=== PATIENT | female | born 1995 | race Caucasian/White ===

== ENCOUNTER 2020-02-07 04:32 | Inpatient (IN) | payer MEDICAID, SELFPAY ==
[2020-02-07] VITALS (18 sets, daily range): BP systolic 0–153; BP diastolic 0–98; PULSE 58–156; RESP 16; TEMP 36.4–36.7; O2SAT 98; BMI 19.8
[2020-02-07] MEDS: lactated ringers 1,000 ML 999 ML IV (04:40)
--- NOTE | 2020-02-07 04:40 | PC.NURSE ---
IV Pt arrived in OB via EMS. Nursing staff attempted to administer IV fluids to IV that was present. IV site started bleeding and unable to run fluids through site. IV discontinued by nursing staff.loida rn.
[2020-02-07 05:55] LABS: Basophils # 0.1 10^3/uL (0.0-0.1); Basophils % 0.3 %; Eosinophils # 0.1 10^3/uL (0.0-0.8); Eosinophils % 0.7 %; Hematocrit 33.9 % (37.0-47.0); Hemoglobin 11.1 g/dL (11.5-15.3); Lymphocytes # 3.8 10^3/uL (0.8-4.8); Lymphocytes % 19.5 %; Mean Corpuscular HGB Conc 32.7 g/dL (30.0-36.0); Mean Corpuscular Hemoglobin 30.9 pg (28.0-34.0); Mean Corpuscular Volume 94.4 fL (81-99); Mean Platelet Volume 11.8 fL (7.4-10.4); Monocytes # 1.2 10^3/uL (0.2-0.9); Monocytes % 6.2 %; Neutrophils # 14.1 10^3/uL (1.8-7.7); Neutrophils % 72.8 %; Nucleated Red Blood Cells % 0 %; Platelet Count 314 10^3/cmm (130-400); Red Blood Count 3.59 10^6/uL (4.1-5.3); Red Cell Distribution Width 15.6 % (12.1-15.1); White Blood Count 19.4 10^3/uL (4.0-10.0)
--- NOTE | 2020-02-07 06:00 | P.HP_ITS ---
Providers/Chief Complaint Admitting Physician: Deann Bustillos MD Primary Care Provider: FAHEEM Blanchard Chief Complaint: labor History of Present Illness Miguel Mccall is a 24 year old female 5 para 4-0-0-4 with a stated last menstrual. Of May 2019. She has had no care. I was contacted by [facility] nursing staff in the OB department regarding a patient in the emergency room at [facility] in [place] who had arrived bryant with rupture of membranes. This call came to me at 3:45 AM. I promptly called [place] emergency room at 3:49 AM and accepted transfer to [facility]. The emergency room physician advised me that she was bryant every 9 to 10 minutes and that his evidence of rupture of membranes was based on patient history. He stated that she was 4 cm dilated and effaced . Upon her arrival to [facility] OB department, patient stated that her water broke approximately an hour prior to her arrival here at [facility] and that to the best of her knowledge her fluid was clear. Her significant other stated that she had mentioned she thought her water broke a few days ago and then even earlier today but it had not until just recently. He stated that she had also been having contractions a few days ago which returned a few hours ago and were more intense. She stated that her. Was sometime in May and that her earliest gestation at delivery was 37 weeks. She is never had Medications/Allergies Allergies Allergy/AdvReac Type Severity Reaction Status Date / Time No Known Allergies Allergy Verified 02/07/20 05:38 Vitals/I&O/Wt Last Vital Signs Pulse 156 H 02/07/20 05:47 BP 153/87 02/07/20 05:47 Data : 02/07/20 04:45 Coding Level of Care Code Acute Pesticide Chemist for Jenise Fields
--- NOTE | 2020-02-07 06:11 | PM.OBGYHP ---
Providers/Chief Complaint Admitting Physician: Deann Bustillos MD Primary Care Provider: FAHEEM Blanchard Chief Complaint: labor HPI INDUSTRIAL RELATIONS SPECIALIST History of Present Illness Miguel Mccall is a 24 year old female 5 para 4-0-0-4 with a last menstrual period in May 2019. She presented to the emergency room at [place] and [place] with contractions starting late last night/earlier this morning and rupture of membranes productive of clear fluid per patient just prior to her arrival. The emergency room physician contacted our OB staff who contacted me at approximately 3:45 AM. I contacted the emergency room physician at [facility] at 3:49 AM and was told that patient was 4 cm dilated and effaced and bryant every 9 to 10 minutes. He stated that they did not evaluate for rupture of membranes but stated that that was per patient's observation. I accepted her transfer, and she arrived at the [facility] OB department after 4:30 AM. Patient stated that she has had no care. Her earliest gestation at delivery was 37 weeks, and all of her pregnancies and deliveries have been uncomplicated with the exception of the most recent delivery last year. She had preeclampsia and delivered at 39 weeks gestation. Present Details : 5 Para: 4 Date of Last Menstrual Period: 05/15/19 Calculated Date of Delivery: 02/19/20 Gestational Age Based on Last Menstrual Period: 38 Dating criteria OB: other (Approximate LMP) care: none Ultrasounds: none Obstetrical complications: none Medical complications OB: none Labs GBS: Unknown Review of Systems Const: Denies: fever(s) : Reports: vaginal discharge (Consistent with amniotic fluid) and pelvic pain (Intermittent and consistent with contractions); Denies: vaginal odor or vaginal bleeding Medications/Allergies Allergies Allergy/AdvReac Type Severity Reaction Status Date / Time No Known Allergies Allergy Verified 02/07/20 05:38 PFSH INDUSTRIAL RELATIONS SPECIALIST PFSH: Social History (Updated 02/07/20 @ 06:19 by Deann Bustillos MD) Smoking and tobacco status: never smoked Caregiver/support person: Yes Lives independently: Yes Household members: significant other Number of children: 4 Number of grandchildren: 0 History History History 5 Term 4 Miscarriages/Ectopic 0 0 Living Children 4 Past Pregnancies Del. Date GA/Weeks Outcome Route Wt Inf Gender Labor Lgth Comp. Anesthesia Location 12/15/12 37 live - full term Vaginal 5 lb 4 oz Female 02/17/15 40 live - full term Vaginal 8 lb 9 oz Male 05/24/16 41 live - full term Vaginal 7 lb 5 oz Female 10/08/18 39 live - full term Vaginal 7 lb 11 oz Female [place] Delivery Date: 12/15/12 No complications Deann Bustillos Delivery Date: 02/17/15 No complications Deann Bustillos Delivery Date: 05/24/16 No complications Deann Bustillos Delivery Date: 10/08/18 Preeclampsia Deann Bustillos Care ALESSANDRO Calculator Estimated Delivery Date Method Current WG Current Estimate 02/19/20 LMP (Uncertain) 38w 2d Expected Delivery Route/Plan Vaginal/precipitous Vitals/I&O/Wt Last Vital Signs Pulse 86 02/07/20 06:01 BP 142/81 02/07/20 06:01 Physical Exam Narrative: EXAM NARRATIVE: heart tones appear category 1 with moderate variability, normal baseline, accelerations and no decelerations. She appears to be bryant every 1 to 2 minutes. Const: GENERAL APPEARANCE: cooperative, well developed and in distress (Breathing through contractions) ORIENTATION/CONSCIOUSNESS: Yes awake, Yes oriented to person, Yes oriented to place and Yes oriented to time : MANUAL OB EXAM: dilated 10 cm, effaced fully and station 0 (Vertex with head well applied) AMNIOTIC FLUID: Meconium-stained amniotic fluid present Data : 02/07/20 04:45 A&P Assessment and plan (1) Spontaneous rupture of membranes: Status: Acute (2) Rupture of membranes with meconium present: Status: Acute (3) Labor, precipitous, antepartum: Prepare for delivery Status: Acute (4) No care in current : DFS consultation Status: Acute Attestations Medical Necessity Statement*: As patient is actively laboring with impending delivery she will require hospitalization. Coding Level of Care Code Acute Harvest Manager for Jenise Fields Diagnoses Spontaneous rupture of membranes Rupture of membranes with meconium present O77.0 Labor, precipitous, antepartum O62.3 No care in current O09.30
--- NOTE | 2020-02-07 06:31 | P.PCNOB_ITS ---
Delivery Note: Date of delivery: February 07, 2020 Pre-Delivery Course: Patient arrived from [facility] emergency room via EMS having left they are actively bryant and with rupture of membranes and 4 cm dilated and effaced . She had no care this . She stated that her last menstrual period was sometime in May 2019. She stated that she was bryant a few days ago and then that the contractions worsened in frequency and intensity earlier this morning and that her water broke just prior to her arrival in the [place] emergency room. When she arrived in the OB department here at [facility] she was completely dilated and effaced and bryant every 1 to 2 minutes. Delivery: After a less than 30-minute active portion of the second stage of labor she delivered a viable male at 5:04 AM. Head was straight OA. There was no nuchal cord. A fore bag was palpable by myself and was ruptured and productive of meconium stained fluid of moderate amount. This was ruptured part way through the active portion of the second stage of her labor. Bulb suctioning was done upon delivery of baby's head and the baby's body. Baby was placed on maternal abdomen while cord was clamped by myself and cut by the father the baby. Cord blood was obtained as maternal blood type was unknown at the time. Baby required only routine resuscitative measures. Gentle traction was placed on the cord, and Pitocin was given intravenously in routine doses. The placenta delivered uneventfully at 5:16 AM and appeared to be intact and meconium stained and will be sent for pathology. Perineum and cervix were inspected and were found to be intact with the exception of bilateral periurethral abrasions. Fundus was firm, deep and well below the umbilicus. Estimated blood loss 100 mL. Post-Delivery Status: Mother and baby were stable. 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
[2020-02-07] MEDS: oxytocin 30 UNIT/500 ML BAG 600 UNIT IV (06:55)
--- NOTE | 2020-02-07 07:00 | PC.NURSE ---
patient stated to this nurse that she had no history of interaction with division of family services (DFS)
--- NOTE | 2020-02-07 08:31 | PC.NURSE ---
pt had no care with this
--- NOTE | 2020-02-07 08:47 | PC.NURSE ---
DFS called, stated that pt did not have custody of older children. Involuntary removal and termination of rights.
[2020-02-07 09:02] LABS: Amphetamines Screen Urine Positive (Negative); Barbiturates Screen Urine Negative (Negative); Benzodiazepines Screen Urine Negative (Negative); Cocaine Screen Urine Negative (Negative); Opiate Screen Urine Negative (Negative); PCP Screen Urine Negative (Negative); THC Screen Urine Negative (Negative)
[2020-02-07] MEDS: prenatal vitamin Capsule 1 CAP PO (09:56)
[2020-02-07] MEDS: docusate sodium 100 mg Capsule PO ×2 (09:56→19:59)
[2020-02-07 12:10] LABS: Rubella IgG 48.6 IU/mL (0.0-9.0)
[2020-02-07 18:02] LABS: Hepatitis B Surface Antigen Non-Reactive (Nonreactive)
[2020-02-07 18:05] LABS: Rapid Plasma Reagin Syphilis Nonreactive (Nonreactive)
[2020-02-07 18:06] LABS: HIV 1 & 2 Antibody Non-Reactive (Non-Reactiv); HIV 1 & 2 Antigen Non-Reactive (Non-Reactiv)
[2020-02-07 19:06] LABS: Hematocrit 34.6 % (37.0-47.0); Hemoglobin 10.7 g/dL (11.5-15.3); Mean Corpuscular HGB Conc 30.9 g/dL (30.0-36.0); Mean Corpuscular Hemoglobin 30.1 pg (28.0-34.0); Mean Corpuscular Volume 97.5 fL (81-99); Mean Platelet Volume 12.3 fL (7.4-10.4); Platelet Count 325 10^3/cmm (130-400); Red Blood Count 3.55 10^6/uL (4.1-5.3); Red Cell Distribution Width 15.6 % (12.1-15.1); White Blood Count 13.7 10^3/uL (4.0-10.0)
[2020-02-08 04:00] VITALS: BP 133/80; PULSE 70; RESP 16
[2020-02-08] MEDS: prenatal vitamin Capsule 1 CAP PO (10:12)
[2020-02-08] MEDS: docusate sodium 100 mg Capsule PO (10:12)
[2020-02-08 10:15] VITALS: BP 124/72; PULSE 66; RESP 17; TEMP 36.4; O2SAT 96
--- NOTE | 2020-02-08 10:27 | PM.OBGYDC ---
Discharge Providers ACUPUNCTURE PHYSICIAN Date of Admission: 02/07/20 04:32 Date of Discharge: 02/08/20 Attending Provider at Admission: Deann Bustillos MD Attending Provider at Discharge: Deann Bustillos MD Primary Care Provider: FAHEEM Blanchard Diagnoses at Discharge Discharge Diagnosis (1) Spontaneous rupture of membranes: Status: Resolved (2) Rupture of membranes with meconium present: Status: Resolved (3) Labor, precipitous, antepartum: Status: Resolved (4) No care in current : Status: Resolved (5) Spontaneous vaginal delivery: Status: Acute (6) Periurethral abrasion, delivered, current hospitalization: Status: Acute (7) Positive urine drug screen: Status: Acute Reason for Visit Reason for Visit: Reason For Visit: labor Hospital Course Hospital Course: Patient arrived early yesterday morning via EMS as a transfer from [facility] [place] accepted by myself at 3:49 AM yesterday morning. She had presented to [facility] emergency room complaining of contractions every 9 to 10 minutes and rupture of membranes which she stated was clear fluid She underwent cervical exam by the emergency room physician which revealed 4 cm dilation and effacement . When I asked if they had proof of rupture membranes he stated that they were taking her word for it. Upon arrival to [facility] OB department she was found to be completely dilated and 0 station with vertex well applied to the cervix and bryant every 1 to 2 minutes. She had evidence of gross rupture with meconium stained fluid. After a brief second stage she delivered a viable male infant weighing 7 pounds 5 ounces with Apgars of 9 at 1 minute and 9 at 5 minutes. She sustained only bilateral periurethral abrasions. Placenta delivered uneventfully, and she had minimal blood loss. labs were obtained after delivery and are noted in the chart. She did have urine toxicology positive for amphetamines. DFS has been consulted and is working on her case. Discharge Summary: day 1 patient states that she has cramping which is relieved by ibuprofen. She would like to have sterilization but realizes that she needs to go through outpatient consultation which involves signing the consent and waiting the appropriate amount of time for it to be validated. I suggested that she get a Depo-Provera injection for interim contraception to which she readily agreed. She states her bleeding is about like a period. We discussed the positive urine toxicology for amphetamines on both herself and baby. I advised patient that rehabilitation is in order, and she admitted to me that she had been to 2 different rehabilitation facilities, [facility] here in [place] and [facility] in [place], both of which turned her away after a very brief stay for detoxification/not having narcotics in her system. She stated that she is been attending an outpatient type of support groups similar to [facility] which meets at a [employer] and [employer] 1 week night a week. We also discussed the fact that parental rights were terminated with 3 of her other 4 children who were adopted by the same foster family, and her daughter lives with the daughter's grandmother. Information Peripartum Data: Delivery Method: Vaginal Physical Exam Const: COMMON NORMALS: no acute distress, average body habitus, patient oriented x3, no limitations, healthy appearing, alert and well nourished Neck/C-Spine: COMMON NORMALS: no JVD Resp: COMMON NORMALS: normal respiratory effort and clear to auscultation bilaterally AUSCULTATION: clear to auscultation bilaterally Cardio: COMMON NORMALS: no JVD, regular rate, regular rhythm, S1 normal heart sound present, S2 normal heart sound present, No gallops present (Cardio), No clicks present (Cardio), No murmurs present (Cardio), No rub (Cardio) and Peripheral pulses 2+ throughout RATE: regular rate RHYTHM: regular rhythm HEART SOUNDS: S1 normal heart sound present and S2 normal heart sound present PERIPHERAL PULSES: Peripheral pulses 2+ throughout : UTERUS PALPATION: Yes Other OB uterine findings (Fundus is firm and at least 3 fingerbreadths below the umbilicus, deep and nontender) Extremity: COMMON NORMALS: no pedal edema Neuro: COMMON NORMALS: patient oriented x3 SENSORIUM/ORIENTATION: Yes alert Psych: COMMON NORMALS: mental status grossly normal, cooperative, normal affect, speech normal and activity/motor behavior normal SPEECH: Yes normal speech Discharge Data Data Completed and Pending: Pending at discharge Category Date Time Status Pathology: Surgic al [PTH] Routine Pth 02/07/20 07:04 Received Labs from last 24 hours 02/07/20 02/07/20 02/07/20 19:00 10:40 10:40 WBC 13.7 H RBC 3.55 L Hgb 10.7 L Hct 34.6 L MCV 97.5 MCH 30.1 MCHC 30.9 D RDW 15.6 H Plt Count 325 MPV 12.3 H RPR Hep Bs Antigen Non-reactive HIV 1&2 Ab & HIV 1 Ag Non-reactive HIV 1&2 Antibody Non-reactive Rubella IgG Antibo dy Blood Type Rho(D) Type Antibody Screen 02/07/20 02/07/20 02/07/20 10:40 10:40 04:45 WBC RBC Hgb Hct MCV MCH MCHC RDW Plt Count MPV RPR Nonreactive Hep Bs Antigen HIV 1&2 Ab & HIV 1 Ag HIV 1&2 Antibody Rubella IgG Antibo dy 48.6 H Blood Type O Positive Rho(D) Type Positive Antibody Screen Negative Vitals: Last Vital Signs Temp 98.0 F 02/07/20 10:12 Pulse 70 02/08/20 04:00 Resp 16 02/08/20 04:00 BP 133/80 02/08/20 04:00 Pulse Ox 98 02/07/20 10:12 Discharge Plan Discharge Patient Disposition: Home, Self-Care Condition: Stable Prescriptions: New ibuprofen 800 mg Tablet 800 mg PO TID Qty: 30 RF: 0 No Action No Known Home Medications RF: 0 Discharge Orders: Discharge Order (Routine); Ordered 02/08/20 Ordered By: Deann Bustillos Referrals: Deann Bustillos MD [Hospitalist] - 6 Weeks Nasir Marti MD [Physician] - 2 weeks (This is for sterilization consultation. Patient does not have a signed consent at this time.) Discharge Diet: Usual diet Discharge Activity: Limit activity as instructed Discharge Attestations ACUPUNCTURE PHYSICIAN Time Spent in Discharge Care*: greater than 30 min Specific Discharge Activities: Specific discharge activities: educating patient, documenting/other paperwork and evaluating patient/reviewing data Status at Discharge: Cognitive status at discharge: cognitively intact, Behavioral status at discharge: cooperative, Functional status at discharge: independent ambulation Overall status at discharge: patient is progressing back to baseline Coding Level of Care Code Acute [employer] for g Fwd Diagnoses Spontaneous rupture of membranes Rupture of membranes with meconium present O77.0 Labor, precipitous, antepartum O62.3 No care in current O09.30 Spontaneous vaginal delivery O80 Periurethral abrasion, delivered, current hospitalization O71.82 Positive urine drug screen R82.5
[2020-02-08] MEDS: medroxyprogesterone 150 mg/ml SDV 1 mL IM (11:24)
--- NOTE | 2020-02-08 11:33 | PC.NURSE ---
Discharge Patient rooming in with baby.
[2020-02-08 15:58] VITALS: BP 146/84; PULSE 70; RESP 18; TEMP 36.6; O2SAT 97
== END 2020-02-08 16:15 | disposition home or self-care (01) | DRG 806 ==
PROVIDERS: Admitting Provider Family Medicine; PCP Nurse Practitioner; Visit Provider Family Medicine
DX: O77.0 Labor and delivery complicated by meconium in amniotic fluid (principal); O99.324 Drug use complicating childbirth; Z37.0 Single live birth; F15.90 Other stimulant use, unspecified, uncomplicated; Z3A.37 37 weeks gestation of pregnancy
CPT/HCPCS: 12345; 36415; 59409; 80306; 80326; 85025; 85027; 86592; 86762; 86850; 86900; 87340; 87491; 87591; 87806; 88307; 96372; 99211; J1050

== ENCOUNTER → 2023-05-14 15:32 | Outpatient (BNVA) | payer MEDICAID, SELFPAY | PROVIDERS: PCP Nurse Practitioner; Visit Provider Nurse Practitioner | DX: Z30.42 Encounter for surveillance of injectable contraceptive (principal) | CPT/HCPCS: 84702 ==

== ENCOUNTER → 2025-04-07 13:27 | Outpatient (BNVA) | payer MEDICAID, SELFPAY | PROVIDERS: Visit Provider Nurse Practitioner Women's Health | DX: N91.2 Amenorrhea, unspecified (principal); N92.6 Irregular menstruation, unspecified | CPT/HCPCS: 81025; 83036; 84146; 84439; 84443; 84702 ==

== ENCOUNTER → 2025-04-13 09:41 | Outpatient (BNVA) | payer BC, MEDICAID, SELFPAY | PROVIDERS: Visit Provider Nurse Practitioner Women's Health | DX: Z36.9 Encounter for antenatal screening, unspecified (principal) | CPT/HCPCS: 76815 ==

== ENCOUNTER → 2025-04-19 13:15 | Outpatient (BNVA) | payer BC, MEDICAID, SELFPAY | PROVIDERS: Visit Provider Nurse Practitioner Women's Health | DX: Z34.80 Encounter for supervision of other normal pregnancy, unspecified trimester (principal); Z34.90 Encounter for supervision of normal pregnancy, unspecified, unspecified trimester; O09.292 Supervision of pregnancy with other poor reproductive or obstetric history, second trimester; R82.5 Elevated urine levels of drugs, medicaments and biological substances; F15.11 Other stimulant abuse, in remission | CPT/HCPCS: 80053; 80307; 80324; 80359; 82105; 84315; 85025; 86592; 86762; 86803; 86850; 86900; 87086; 87340; 87522; 87806 ==

== ENCOUNTER → 2025-05-18 15:24 | Outpatient (BNVA) | payer BC, MEDICAID, SELFPAY | PROVIDERS: Visit Provider Obstetrics & Gynecology | DX: Z36.9 Encounter for antenatal screening, unspecified (principal); Z3A.20 20 weeks gestation of pregnancy | CPT/HCPCS: 76805 ==

== ENCOUNTER → 2025-06-26 14:25 | Outpatient (BNVA) | payer BC, MEDICAID, SELFPAY | PROVIDERS: Visit Provider Obstetrics & Gynecology | DX: Z34.82 Encounter for supervision of other normal pregnancy, second trimester (principal); Z3A.26 26 weeks gestation of pregnancy | CPT/HCPCS: 84315; 87624 ==

== ENCOUNTER → 2025-07-10 10:59 | Outpatient (BNVA) | payer BC, MEDICAID, SELFPAY | PROVIDERS: Visit Provider Obstetrics & Gynecology | DX: O99.323 Drug use complicating pregnancy, third trimester (principal); Z3A.28 28 weeks gestation of pregnancy; F12.90 Cannabis use, unspecified, uncomplicated | CPT/HCPCS: 84315 ==

== ENCOUNTER → 2025-07-17 11:28 | Outpatient (BNVA) | payer BC, MEDICAID, SELFPAY | PROVIDERS: Visit Provider Obstetrics & Gynecology | DX: O99.333 Smoking (tobacco) complicating pregnancy, third trimester (principal); Z3A.28 28 weeks gestation of pregnancy | CPT/HCPCS: 82950 ==

== ENCOUNTER → 2025-07-28 10:07 | Outpatient (BNVA) | payer BC, MEDICAID, SELFPAY | PROVIDERS: Visit Provider Obstetrics & Gynecology | DX: O99.333 Smoking (tobacco) complicating pregnancy, third trimester (principal) | CPT/HCPCS: 84315; 85025 ==

== ENCOUNTER → 2025-08-14 09:48 | Outpatient (BNVA) | payer BC, MEDICAID, SELFPAY | PROVIDERS: Visit Provider Obstetrics & Gynecology | DX: O99.333 Smoking (tobacco) complicating pregnancy, third trimester (principal); Z3A.33 33 weeks gestation of pregnancy; F15.11 Other stimulant abuse, in remission; F10.11 Alcohol abuse, in remission; Z87.898 Personal history of other specified conditions; F32.A Depression, unspecified; F41.1 Generalized anxiety disorder | CPT/HCPCS: 84315 ==